=== PATIENT | female | born 1955 | race Caucasian/White ===

== ENCOUNTER 2017-10-27 17:23 | Observation (INO) | payer OTHER ==
[~2017-10-27] VITALS: Ht 147.3 cm; Wt 52.0 kg
[~2017-10-27 17:23] MED LIST: BACL20TA PO; CALTTAB PO; ERTA1P IVPB; GABA100C4 PO; KCL10C PO; MAGN400 PO; METO25 PO; OMEP20CA5 PO; PRAV40TA PO; TAB-TAB PO
[2017-10-27 17:31] VITALS: BP 156/77; PULSE 76; RESP 16; TEMP 99; O2SAT 95
[2017-10-27] MEDS ORDERED: SODIUM CHLOR 0.9% 1000 ML INJ 1,000 ML IV ONE (18:00)
[2017-10-27] MEDS ORDERED: HYDROmorphone HCL PF 2 MG/ML VIAL IV PUSH ONE ×2 (18:00→20:45)
[2017-10-27] MEDS ORDERED: ONDANSETRON HCL 4 MG/2 ML VIAL IV PUSH ONE (18:00)
--- NOTE | 2017-10-27 18:05 | PD ---
HPI Chief Complaint: Abdominal Pain Time Seen by Provider: 17:52 Travel History International Travel<30 days: No Contact w/Intl Traveler<30days: No Traveled to known affect area: No History of Present Illness HPI This 62-year-old female says she is having right upper quadrant pain since Thursday. SHe has been vomiting. She is not able to keep anything down. The pain is been intermittent. She has a history of appendectomy. She did pass a kidney stone in the 80s. She says she had a colonoscopy done fairly recently. She is a patient with the [facility]. He says there is been persistent vomiting since Thursday. She has a history of severe back trouble she has rods and screws in her back and is on gabapentin and baclofen for pain. She has been on narcotics in the past but is not on anything now PFSH Past Medical History Arthritis: Yes Asthma: Yes Autoimmune Disease: No Blood Disorders: No Anxiety: Yes Depression: Yes Heart Rhythm Problems: No Cancer: No Cardiovascular Problems: Yes (TACHYCARDIA) High Cholesterol: Yes Chemotherapy: No Chest Pain: No Congestive Heart Failure: No COPD: Yes Cerebrovascular Accident: No Diabetes: No Diminished Hearing: No Endocrine: No GERD: Yes Glaucoma: No Genitourinary: Yes (RENAL CALCULI) Headaches: Yes Hepatitis: No Hiatal Hernia: No Herniated Disk: Yes (LUMBAR 2,3,4,5) Hypertension: Yes Immune Disorder: No Kidney Stones: Yes Musculoskeletal: Yes (BACK PAIN) Neurologic: No Psychiatric: Yes Reproductive: No Respiratory: Yes Immunizations Current: No Migraines: No Myocardial Infarction: No Radiation Therapy: No Renal Failure: No Seizures: No Sickle Cell Disease: No Sleep Apnea: No Thyroid Disease: No Ulcer: No PNEUMOCCOCAL Vaccine (Year): 2 ?: Not Menopausal: Yes Ectopic : Yes (1974) Ovarian Cysts: Yes Past Surgical History Abdominal Surgery: No AICD: No Appendectomy: Yes (1966) Arteriovenous Shunt: No Cardiac Surgery: No Cholecystectomy: No Ear Surgery: No Endocrine Surgery: No Eye Surgery: No Genitourinary Surgery: No Gynecologic Surgery: Yes (hysterectomy) Hysterectomy: Yes Insulin Pump: No Joint Replacement: Yes (CRISTOBAL RODS & SCREWS L2-3, 2004) Oral Surgery: No Pacemaker: No Thoracic Surgery: No Tonsillectomy: Yes Other Surgery: Yes (TUMOR REMOVED BETWEEN EYES) Social History Alcohol Use: No Tobacco Use: No (QUIT DECEMBER 2010) Substance Use: No Allergies-Medications (Allergen,Severity, Reaction): Coded Allergies: levofloxacin (Unverified Allergy, Severe, Rash, 01/27/17) magnesium citrate (Unverified Allergy, Severe, Nausea/Vomiting, 01/27/17) penicillin G (Unverified Allergy, Severe, Anaphylaxis, 01/27/17) pneumococcal vaccine (Unverified Allergy, Severe, Anaphylaxis, 01/27/17) Reported Meds & Prescriptions Reported Meds & Active Scripts Active Reported Arthritis Pain Reliever ER 8 HR (Acetaminophen) 650 Mg Tab 650 Mg PO Q8HR PRN Pravachol (Pravastatin) 80 Mg Tab 80 Mg PO DAILY Omeprazole 20 Mg Tab 20 Mg PO DAILY Metoprolol Tartrate 25 Mg Tab 25 Mg PO BID Gabapentin 100 Mg Cap 100 Mg PO BID Baclofen 20 Mg Tab 20 Mg PO TID Review of Systems General / Constitutional: No: Fever, Chills Eyes: No: Diploplia, Blurred Vision HENT: No: Headaches, Vertigo Cardiovascular: No: Chest Pain or Discomfort, Palpitations, Irregular Rhythm Respiratory: No: Cough, Shortness of Breath Gastrointestinal: Positive: Nausea, Vomiting, Diarrhea, Abdominal Pain Genitourinary: No: Urgency, Frequency Musculoskeletal: No: Myalgias Skin: No Rash, No Itching Neurologic: No: Weakness, Dizziness Endocrine: No: Heat Intolerance Hematologic/Lymphatic: No: Easy Bruising Physical Exam Narrative GENERAL: Thin female SKIN: Focused skin assessment warm/dry. HEAD: Atraumatic. Normocephalic. EYES: Pupils equal and round. No scleral icterus. No injection or drainage. ENT: No nasal bleeding or discharge. Mucous membranes pink and moist. NECK: Trachea midline. No JVD. CARDIOVASCULAR: Regular rate and rhythm. No murmur appreciated. RESPIRATORY: No accessory muscle use. Clear to auscultation. Breath sounds equal bilaterally. GASTROINTESTINAL: Abdomen soft, non-tender, nondistended. Hepatic and splenic margins not palpable. Pain is the right upper quadrant but it is not particularly tender to palpate,there are no masses palpable MUSCULOSKELETAL: No obvious deformities. No clubbing. No cyanosis. No edema. She has multiple scars in her back NEUROLOGICAL: Awake and alert. No obvious cranial nerve deficits. Motor grossly within normal limits. Normal speech. PSYCHIATRIC: Appropriate mood and affect; insight and judgment normal. Data Data Last Documented VS Vital Signs Date Time Temp Pulse Resp B/P (MAP) Pulse Ox O2 Delivery O2 Flow Rate FiO2 10/27/17 20:20 98.4 74 16 129/73 (91) 96 Room Air Orders Orders Complete Blood Count With Diff (10/27/17 18:00) Comprehensive Metabolic Panel (10/27/17 18:00) Lipase (10/27/17 18:00) Urinalysis - C+S If Indicated (10/27/17 18:00) Chest, Pa & Lat (10/27/17 18:00) Sodium Chlor 0.9% 1000 Ml Inj (Ns 1000 M (10/27/17 18:00) Ondansetron Inj (Zofran Inj) (10/27/17 18:00) Hydromorphone Pf Inj (Dilaudid Pf Inj) (10/27/17 18:00) Ct Abd/Pel W Iv Contrast(Rout) (10/27/17 19:03) Iohexol 350 Inj (Omnipaque 350 Inj) (10/27/17 20:08) Hydromorphone Pf Inj (Dilaudid Pf Inj) (10/27/17 20:45) Metoclopramide Inj (Reglan Inj) (10/27/17 20:45) Sodium Chlorid 0.9% 500 Ml Inj (Ns 500 M (10/27/17 20:45) Diet Npo (10/28/17 Breakfast) Vital Signs (Adult) EMRE.Q4H (10/27/17 20:47) Ondansetron Inj (Zofran Inj) (10/27/17 21:00) Hydromorphone Pf Inj (Dilaudid Pf Inj) (10/27/17 21:00) Sodium Chlor 0.9% 1000 Ml Inj (Ns 1000 M (10/27/17 21:00) Place In Observation (10/27/17 ) Admit Order (Ed Use Only) (10/27/17 ) Vital Signs (Adult) Q4H (10/27/17 20:49) Activity Oob With Assistance (10/27/17 20:49) Notify Dr: Other (10/27/17 20:49) Labs Laboratory Tests Test 10/27/17 18:20 10/27/17 19:10 White Blood Count 6.2 TH/MM3 Red Blood Count 4.03 MIL/MM3 Hemoglobin 12.9 GM/DL Hematocrit 39.1 % Mean Corpuscular Volume 97.0 FL Mean Corpuscular Hemoglobin 32.1 PG Mean Corpuscular Hemoglobin Concent 33.1 % Red Cell Distribution Width 12.2 % Platelet Count 296 TH/MM3 Mean Platelet Volume 7.9 FL Neutrophils (%) (Auto) 42.8 % Lymphocytes (%) (Auto) 44.1 % Monocytes (%) (Auto) 7.7 % Eosinophils (%) (Auto) 3.8 % Basophils (%) (Auto) 1.6 % Neutrophils # (Auto) 2.7 TH/MM3 Lymphocytes # (Auto) 2.7 TH/MM3 Monocytes # (Auto) 0.5 TH/MM3 Eosinophils # (Auto) 0.2 TH/MM3 Basophils # (Auto) 0.1 TH/MM3 CBC Comment DIFF FINAL Differential Comment Blood Urea Nitrogen 18 MG/DL Creatinine 0.75 MG/DL Random Glucose 97 MG/DL Total Protein 7.4 GM/DL Albumin 3.7 GM/DL Calcium Level 9.2 MG/DL Alkaline Phosphatase 83 U/L Aspartate Amino Transf (AST/SGOT) 22 U/L Alanine Aminotransferase (ALT/SGPT) 29 U/L Total Bilirubin 0.3 MG/DL Sodium Level 141 MEQ/L Potassium Level 4.0 MEQ/L Chloride Level 112 MEQ/L Carbon Dioxide Level 22.8 MEQ/L Anion Gap 6 MEQ/L Estimat Glomerular Filtration Rate 78 ML/MIN Lipase 128 U/L Urine Color YELLOW Urine Turbidity CLEAR Urine pH 6.0 Urine Specific [place] 1.020 Urine Protein NEG mg/dL Urine Glucose (UA) NEG mg/dL Urine Ketones NEG mg/dL Urine Occult Blood SMALL Urine Nitrite NEG Urine Bilirubin NEG Urine Urobilinogen 0.2 MG/DL Urine Leukocyte Esterase NEG Urine RBC 20-24 /hpf Urine WBC 0-2 /hpf Urine Squamous Epithelial Cells 0-5 /hpf Urine Bacteria NONE /hpf Microscopic Urinalysis Comment CULT NOT INDICATED MDM Medical Decision Making Medical Screen Exam Complete: Yes Emergency Medical Condition: Yes Medical Record Reviewed: Yes Differential Diagnosis Differential includes cholecystitis, radiculopathy, chest pain Narrative Course CT scan and lab work have been ordered and disposition is pending results of these tests William Saldaña MD October 27, 2017 18:05
[2017-10-27] MEDS ORDERED: PRAV80TA PO (18:09)
[2017-10-27] MEDS ORDERED: GABA100C4 PO (18:09)
[2017-10-27] MEDS ORDERED: BACL20TA PO (18:09)
[2017-10-27] MEDS ORDERED: METO25TA3 PO (18:09)
[2017-10-27] MEDS ORDERED: OMEP20TA93 PO (18:09)
[2017-10-27] MEDS ORDERED: ARTH650T6 PO (18:10)
[2017-10-27 18:33] LABS: AUTOMATED NEUTROPHIL # 2.7 TH/MM3 (1.8-7.7); BASOPHIL # 0.1 TH/MM3 (0-0.2); BASOPHIL % 1.6 % (0.0-2.0); EOSINOPHIL # 0.2 TH/MM3 (0-0.4); EOSINOPHIL % 3.8 % (0.0-4.0); HEMATOCRIT 39.1 % (35.0-46.0); HEMOGLOBIN 12.9 GM/DL (11.6-15.3); LYMPH % 44.1 % (9.0-44.0); LYMPHOCYTE # 2.7 TH/MM3 (1.0-4.8); MEAN CORPUSCULAR HEMOGLOBIN 32.1 PG (27.0-34.0); MEAN CORPUSCULAR HGB CONC 33.1 % (32.0-36.0); MEAN PLATELET VOLUME 7.9 FL (7.0-11.0); MONO % 7.7 % (0.0-8.0); MONOCYTE # 0.5 TH/MM3 (0-0.9); NEUT % 42.8 % (16.0-70.0); PLATELET COUNT 296 TH/MM3 (150-450); RED BLOOD COUNT 4.03 MIL/MM3 (4.00-5.30); RED CELL DISTRIBUTION WIDTH 12.2 % (11.6-17.2); WHITE BLOOD COUNT 6.2 TH/MM3 (4.0-11.0)
[2017-10-27 18:42] LABS: CHLORIDE 112 MEQ/L (98-107); SODIUM (NA) 141 MEQ/L (136-145)
[2017-10-27 18:43] VITALS: BP 150/80; PULSE 58; RESP 16; O2SAT 95
[2017-10-27 18:45] LABS: ALBUMIN 3.7 GM/DL (3.4-5.0); CALCIUM 9.2 MG/DL (8.5-10.1)
[2017-10-27 18:46] LABS: BICARBONATE 22.8 MEQ/L (21.0-32.0); BLOOD UREA NITROGEN 18 MG/DL (7-18); GLUCOSE,RANDOM 97 MG/DL (74-106)
[2017-10-27 18:48] LABS: ALT (GPT) 29 U/L (10-53)
[2017-10-27 18:49] LABS: AST (GOT) 22 U/L (15-37); CREATININE 0.75 MG/DL (0.50-1.00); GLOMERULAR FILTRATION RATE 78 ML/MIN (>89)
[2017-10-27 18:50] LABS: TOTAL BILIRUBIN ADULT 0.3 MG/DL (0.2-1.0); TOTAL PROTEIN 7.4 GM/DL (6.4-8.2)
[2017-10-27 18:51] LABS: ALKALINE PHOSPHATASE 83 U/L (45-117)
[2017-10-27 19:19] LABS: BILIRUBIN, URINE NEG (NEG); BLOOD, URINE SMALL (NEG); GLUCOSE,URINE NEG (NEG); KETONE, URINE NEG (NEG); NITRITE,URINE NEG (NEG); URINE COLOR YELLOW (YELLW/STRAW); URINE LEUKOCYTE ESTERASE NEG (NEG)
[2017-10-27 19:24] LABS: WBC, URINE 0-2 /hpf (0-5)
[2017-10-27 19:25] LABS: SQUAMOUS EPITHELIAL CELL URINE 0-5 /hpf (0-5)
--- NOTE | 2017-10-27 19:31 | RADRPT ---
EXAM DATE/TIME: 10/27/2017 18:48 [facility] COMPARISON: No previous studies available for comparison. INDICATIONS : Nausea and vomiting with right flank pain for 3 days. MEDICAL HISTORY : Hypertension. Hypercholesterolemia. Chronic obstructive pulmonary disease. Tachycardia. Emphysema . GERD. Arthritis. SURGICAL HISTORY : Appendectomy. Hysterectomy. Lumbar fusion. Dhillon rods. ENCOUNTER: Initial ACUITY: 3 days PAIN SCORE: 5/10 LOCATION: Bilateral chest FINDINGS: PA and lateral views of the chest demonstrate the lungs to be symmetrically aerated without evidence of mass, infiltrate or effusion. The cardiomediastinal contours are unremarkable. Degenerative torres es in the spine.. CONCLUSION: No acute disease Randal Baer MD on October 27, 2017 at 19:27 Board Certified Radiologist. This report was verified electronically.
[2017-10-27] MEDS ORDERED: IOHEXOL 350 MG/ML 10 ML VIAL (for RAD DIAG) IVCONTRAST ONE (20:08)
[2017-10-27 20:20] VITALS: BP 129/73; PULSE 74; RESP 16; TEMP 98.4; O2SAT 96
--- NOTE | 2017-10-27 20:28 | RADRPT ---
EXAM DATE/TIME: 10/27/2017 19:21 [facility] COMPARISON: No previous studies available for comparison. INDICATIONS : Right upper quadrant pain. Nausea, vomiting and diarrhea. IV CONTRAST: 75 cc Omnipaque 350 (iohexol) IV ORAL CONTRAST: No oral contrast ingested. RADIATION DOSE: 5.72 CTDIvol (mGy) MEDICAL HISTORY : Gastroesophageal reflux disease. SURGICAL HISTORY : Appendectomy. Hysterectomy.Fusion, lumbar. ENCOUNTER: Initial ACUITY: 3 days PAIN SCALE: 8/10 LOCATION: Right upper quadrant TECHNIQUE: Volumetric scanning of the abdomen and pelvis was performed. Using automated exposure control and ad justment of the mA and/or kV according to patient size, radiation dose was kept as low as reasonably achievable to obtain optimal diagnostic quality images. DICOM format image data is available electro nically for review and comparison. FINDINGS: LOWER LUNGS: The visualized lower lungs are clear. LIVER: Homogeneous density without lesion. Slight biliary ductal prominence with common duct diameter of 8 o r 9 mm. No calcified gallstones. SPLEEN: Normal size without lesion. PANCREAS: Within normal limits. KIDNEYS: Small cysts in the kidneys. No evidence of suspicious mass, stone or hydronephrosis. ADRENAL GLANDS: Within normal limits. VASCULAR: There is no aortic aneurysm. BOWEL/MESENTERY: The stomach, small bowel, and colon demonstrate no acute abnormality. There is no free intraperitone al air or fluid. ABDOMINAL WALL: Within normal limits. RETROPERITONEUM: There is no lymphadenopathy. BLADDER: No wall thickening or mass. REPRODUCTIVE: Uterus is surgically absent. No evidence of pelvic mass or free fluid INGUINAL: There is no lymphadenopathy or hernia. MUSCULOSKELETAL: Previous extensive lumbar hardware fusion. CONCLUSION: Mild biliary ductal prominence. Randal Baer MD on October 27, 2017 at 20:18 Board Certified Radiologist. This report was verified electronically.
--- NOTE | 2017-10-27 20:36 | PD ---
Physical Exam Date Seen by Provider: October 27, 2017 Time Seen by Provider: 20:00 Narrative GENERAL: Well-developed well-nourished female no acute distress or respiratory distress SKIN: Warm and dry. CARDIOVASCULAR: Regular rate and rhythm without murmurs, gallops, or rubs. RESPIRATORY: Breath sounds equal bilaterally. No accessory muscle use. GASTROINTESTINAL: Abdomen soft, right upper quadrant tenderness to palpation, [place] sign on exam, nondistended. BACK: Nontender. No CVA tenderness. Data Data Last Documented VS Vital Signs Date Time Temp Pulse Resp B/P (MAP) Pulse Ox O2 Delivery O2 Flow Rate FiO2 10/27/17 20:20 98.4 74 16 129/73 (91) 96 Room Air Orders Orders Complete Blood Count With Diff (10/27/17 18:00) Comprehensive Metabolic Panel (10/27/17 18:00) Lipase (10/27/17 18:00) Urinalysis - C+S If Indicated (10/27/17 18:00) Chest, Pa & Lat (10/27/17 18:00) Sodium Chlor 0.9% 1000 Ml Inj (Ns 1000 M (10/27/17 18:00) Ondansetron Inj (Zofran Inj) (10/27/17 18:00) Hydromorphone Pf Inj (Dilaudid Pf Inj) (10/27/17 18:00) Ct Abd/Pel W Iv Contrast(Rout) (10/27/17 19:03) Iohexol 350 Inj (Omnipaque 350 Inj) (10/27/17 20:08) Hydromorphone Pf Inj (Dilaudid Pf Inj) (10/27/17 20:45) Metoclopramide Inj (Reglan Inj) (10/27/17 20:45) Sodium Chlorid 0.9% 500 Ml Inj (Ns 500 M (10/27/17 20:45) Diet Npo (10/28/17 Breakfast) Vital Signs (Adult) EMRE.Q4H (10/27/17 20:47) Ondansetron Inj (Zofran Inj) (10/27/17 21:00) Hydromorphone Pf Inj (Dilaudid Pf Inj) (10/27/17 21:00) Sodium Chlor 0.9% 1000 Ml Inj (Ns 1000 M (10/27/17 21:00) Place In Observation (10/27/17 ) Admit Order (Ed Use Only) (10/27/17 ) Vital Signs (Adult) Q4H (10/27/17 20:49) Activity Oob With Assistance (10/27/17 20:49) Notify Dr: Other (10/27/17 20:49) Labs Laboratory Tests Test 10/27/17 18:20 10/27/17 19:10 White Blood Count 6.2 TH/MM3 Red Blood Count 4.03 MIL/MM3 Hemoglobin 12.9 GM/DL Hematocrit 39.1 % Mean Corpuscular Volume 97.0 FL Mean Corpuscular Hemoglobin 32.1 PG Mean Corpuscular Hemoglobin Concent 33.1 % Red Cell Distribution Width 12.2 % Platelet Count 296 TH/MM3 Mean Platelet Volume 7.9 FL Neutrophils (%) (Auto) 42.8 % Lymphocytes (%) (Auto) 44.1 % Monocytes (%) (Auto) 7.7 % Eosinophils (%) (Auto) 3.8 % Basophils (%) (Auto) 1.6 % Neutrophils # (Auto) 2.7 TH/MM3 Lymphocytes # (Auto) 2.7 TH/MM3 Monocytes # (Auto) 0.5 TH/MM3 Eosinophils # (Auto) 0.2 TH/MM3 Basophils # (Auto) 0.1 TH/MM3 CBC Comment DIFF FINAL Differential Comment Blood Urea Nitrogen 18 MG/DL Creatinine 0.75 MG/DL Random Glucose 97 MG/DL Total Protein 7.4 GM/DL Albumin 3.7 GM/DL Calcium Level 9.2 MG/DL Alkaline Phosphatase 83 U/L Aspartate Amino Transf (AST/SGOT) 22 U/L Alanine Aminotransferase (ALT/SGPT) 29 U/L Total Bilirubin 0.3 MG/DL Sodium Level 141 MEQ/L Potassium Level 4.0 MEQ/L Chloride Level 112 MEQ/L Carbon Dioxide Level 22.8 MEQ/L Anion Gap 6 MEQ/L Estimat Glomerular Filtration Rate 78 ML/MIN Lipase 128 U/L Urine Color YELLOW Urine Turbidity CLEAR Urine pH 6.0 Urine Specific [place] 1.020 Urine Protein NEG mg/dL Urine Glucose (UA) NEG mg/dL Urine Ketones NEG mg/dL Urine Occult Blood SMALL Urine Nitrite NEG Urine Bilirubin NEG Urine Urobilinogen 0.2 MG/DL Urine Leukocyte Esterase NEG Urine RBC 20-24 /hpf Urine WBC 0-2 /hpf Urine Squamous Epithelial Cells 0-5 /hpf Urine Bacteria NONE /hpf Microscopic Urinalysis Comment CULT NOT INDICATED MDM Medical Record Reviewed: Yes Supervised Visit with KEVIN: No Interpretation(s) ua: blood; no cx indicated Last Impressions Abdomen/Pelvis CT 10/27/17 1903 Signed Impressions: Service Date/Time: Friday, October 27, 2017 19:21 - CONCLUSION: Mild biliary ductal prominence. Randal Baer MD Chest X-Ray 10/27/17 1800 Signed Impressions: Service Date/Time: Friday, October 27, 2017 18:48 - CONCLUSION: No acute disease Randal Baer MD CBC & BMP Diagram 10/27/17 18:20 Total Protein 7.4, Albumin 3.7, Calcium Level 9.2, Alkaline Phosphatase 83, Aspartate Amino Transf (AST/SGOT) 22, Alanine Aminotransferase (ALT/SGPT) 29, Total Bilirubin 0.3 Vital Signs Date Time Temp Pulse Resp B/P (MAP) Pulse Ox O2 Delivery O2 Flow Rate FiO2 10/27/17 20:20 98.4 74 16 129/73 (91) 96 Room Air 10/27/17 18:43 58 16 150/80 (103) 95 Room Air 10/27/17 17:31 99.0 76 16 156/77 (103) 95 Differential Diagnosis Accepted in transfer of care from Dr. Callejas; please refer to his dictation Narrative Course Accepted in transfer of care from Dr. Callejas; follow-up of pending labs imaging study and disposition At 8:35 PM lab values are found to be in normal range; CT abdomen pelvis identifies mild biliary duct prominence. Patient with spouse at bedside informed of lab results imaging results and reexamine continues to have reproducible right upper quadrant abdominal pain to palpation without guarding or rebound also continues to have localized right flank pain; current pain 6/10 intensity with persistent nausea patient given additional dose of Dilaudid 0.5 mg IV Reglan 10 mg IV and additional bolus of normal saline 500 cc; patient's case discussed with on-call medicine for observation admission for intractable pain right upper quadrant consistent with biliary colic possible early cholecystitis. Physician Communication Physician Communication Discussed with Dr Loya --obs Diagnosis Primary Impression: Intractable abdominal pain Admitting Information Admitting Physician Requests: Observation Carol Rendon MD October 27, 2017 20:36
[2017-10-27] MEDS ORDERED: METOCLOPRAMIDE HCL 10 MG/2 ML VIAL IV PUSH ONE (20:45)
[2017-10-27] MEDS ORDERED: SODIUM CHLORID 0.9% 500 ML INJ 500 ML IV ONE (20:45)
[2017-10-27] MEDS: SODIUM CHLOR 0.9% 1000 ML INJ 1,000 ML IV SCH (21:57)
[2017-10-27 22:00] VITALS: BP 128/75; PULSE 63; RESP 20; TEMP 98.6; O2SAT 96
[2017-10-28 04:00] VITALS: BP 150/84; PULSE 75; RESP 20; TEMP 97.3; O2SAT 100
[2017-10-28] MEDS: ONDANSETRON HCL 4 MG/2 ML VIAL IV PUSH PRN ×3 (04:33→22:14)
[2017-10-28] MEDS: HYDROmorphone HCL PF 0.5 MG/0.5 ML SYRINGE IV PUSH PRN ×4 (04:34→19:42)
[2017-10-28] MEDS: SODIUM CHLOR 0.9% 1000 ML INJ 1,000 ML IV SCH ×2 (07:56→17:51)
[2017-10-28 08:00] VITALS: BP 146/86; PULSE 61; RESP 18; TEMP 97.6; O2SAT 100
[2017-10-28 12:00] VITALS: BP 144/89; PULSE 70; RESP 18; TEMP 97.6; O2SAT 100
--- NOTE | 2017-10-28 12:09 | HHI.HP ---
[facility] Service [place] [facility] Primary Care Physician Non-Staff Admission Diagnosis RUQ abdominal pain Diagnoses: Chief Complaint: Abdominal pain Nausea and vomiting Diarrhea Travel History International Travel<30 Days: No Contact w/Intl Traveler <30 Da: No Traveled to Known Affected Are: No History of Present Illness This is a pleasant 62-year-old female patient with a known medical history of tachycardia, hyperlipidemia, GERD and COPD who presented to the ED with complaints of worsening right upper quadrant pain, nausea and vomiting and diarrhea. Patient states that over the past year she has been following with the MA, she states that she has been having indigestion that has been progressively getting worse and more frequent bouts. Patient states that since Thursday this time patient noticed pain in her right upper quadrant right below her breast, lasted a couple hours, took some Tums and noticed mild relief. Shortly after the pain reoccurred, characterized as burning and sharp in nature , constant in nature and has been pretty constant since Thursday. Denies any worsening factors. Does admit to subjective low-grade fever and chills as well as shortness of breath with the pain. Patient does state that she has not been able to tolerate anything by mouth since Thursday and has had nausea, vomiting and diarrhea. Patient does have a history of appendectomy. Last colonoscopy was 2 years ago. Denies any EGD in the past. Denies any changes in her medicines. Does admit to a history of chronic back pain on baclofen and gabapentin. Denies any significant weight loss in the past. Denies any bloody or black stools. Denies any dysuria or chest pain. Vital signs upon presentation are normal, afebrile. No leukocytosis. BMP essentially unremarkable. UA negative. Review of Systems Constitutional: COMPLAINS OF: Fatigue, Fever, Chills, DENIES: Diaphoretic episodes Eyes: DENIES: Blurred vision, Diplopia Respiratory: DENIES: Cough, Sputum production, Shortness of breath Cardiovascular: DENIES: Chest pain, Palpitations Gastrointestinal: COMPLAINS OF: Abdominal pain, Diarrhea, Nausea, Vomiting, DENIES: Black stools, Bloody stools, Constipation Musculoskeletal: DENIES: Joint pain Hematologic/lymphatic: DENIES: Bruising Immunologic/allergic: DENIES: Eczema Neurologic: DENIES: Abnormal gait Psychiatric: DENIES: Anxiety Except as stated in HPI: all other systems reviewed are Neg Past Family Social History Past Medical History Anxiety depression Arthritis Tachycardia Hyperlipidemia COPD History of tobacco abuse GERD History of renal calculi Chronic back pain with herniated lumbar 2, 3, 4, 5 discs History of jaw necrosis requiring multiple surgeries Past Surgical History Appendectomy Total hysterectomy Back surgery with placement of Dhillon rods and screws in L2-3 Tonsillectomy 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 Reported Medications Active Reported Arthritis Pain Reliever ER 8 HR (Acetaminophen) 650 Mg Tab 650 Mg PO Q8HR PRN Pravachol (Pravastatin) 80 Mg Tab 80 Mg PO DAILY Omeprazole 20 Mg Tab 20 Mg PO DAILY Metoprolol Tartrate 25 Mg Tab 25 Mg PO BID Gabapentin 100 Mg Cap 100 Mg PO BID Baclofen 20 Mg Tab 20 Mg PO TID Allergies: Coded Allergies: levofloxacin (Unverified Allergy, Severe, Rash, 01/27/17) magnesium citrate (Unverified Allergy, Severe, Nausea/Vomiting, 01/27/17) penicillin G (Unverified Allergy, Severe, Anaphylaxis, 01/27/17) pneumococcal vaccine (Unverified Allergy, Severe, Anaphylaxis, 01/27/17) Active Ordered Medications Current Medications Medications (Trade) Dose Ordered Sig/Juancho Route Start Time Stop Time Status Last Admin (Zofran Inj) 4 mg Q8HR PRN IV PUSH 10/27/17 21:00 10/28/17 04:33 (Dilaudid Pf Inj) 0.5 mg Q4H PRN IV PUSH 10/27/17 21:00 10/28/17 09:39 Sodium Chloride 1,000 ml @ 100 mls/hr Q10H IV 10/27/17 21:00 10/28/17 07:56 Family History Maternal medical history significant for breast cancer. Patient of Parkinson's disease. Social History Patient states that she quit smoking 1 month ago. Does admit to a 50 year smoking history, with maximum of 3 packs per day. Denies any illicit drug use. Denies any alcohol use. Physical Exam Vital Signs Vital Signs Date Time Temp Pulse Resp B/P (MAP) Pulse Ox O2 Delivery O2 Flow Rate FiO2 10/28/17 08:00 97.6 61 18 146/86 (106) 100 10/28/17 04:00 97.3 75 20 150/84 (106) 100 10/27/17 22:00 98.6 63 20 128/75 (92) 96 10/27/17 21:49 10/27/17 20:20 98.4 74 16 129/73 (91) 96 Room Air 10/27/17 18:43 58 16 150/80 (103) 95 Room Air 10/27/17 17:31 99.0 76 16 156/77 (103) 95 Physical Exam GENERAL: Well-developed, well-nourished patient in NAD. SKIN: Warm and dry. No rash. HEAD: Normocephalic. Atraumatic. EYES: Pupils equal and round. No scleral icterus. No injection or drainage. ENT: No nasal bleeding or discharge. Mucous membranes pink and moist. NECK: Supple. Trachea midline. CARDIOVASCULAR: Regular rate and rhythm. S1, S2 noted. No murmur appreciated. RESPIRATORY: No accessory muscle use. Clear to auscultation. Breath sounds equal bilaterally. GASTROINTESTINAL: Abdomen soft, nondistended. Painful to palpation of right upper quadrant. Normoactive bowel sounds x4. MUSCULOSKELETAL: No obvious deformities. Extremities without clubbing, cyanosis , or edema. NEUROLOGICAL: Awake and alert. No obvious cranial nerve deficits. Motor grossly within normal limits. 5/5 muscle strength in bilateral upper and lower extremities. Normal speech. PSYCHIATRIC: Appropriate mood and affect; insight and judgment normal. Laboratory Laboratory Tests Test 10/27/17 18:20 10/27/17 19:10 White Blood Count 6.2 Red Blood Count 4.03 Hemoglobin 12.9 Hematocrit 39.1 Mean Corpuscular Volume 97.0 Mean Corpuscular Hemoglobin 32.1 Mean Corpuscular Hemoglobin Concent 33.1 Red Cell Distribution Width 12.2 Platelet Count 296 Mean Platelet Volume 7.9 Neutrophils (%) (Auto) 42.8 Lymphocytes (%) (Auto) 44.1 Monocytes (%) (Auto) 7.7 Eosinophils (%) (Auto) 3.8 Basophils (%) (Auto) 1.6 Neutrophils # (Auto) 2.7 Lymphocytes # (Auto) 2.7 Monocytes # (Auto) 0.5 Eosinophils # (Auto) 0.2 Basophils # (Auto) 0.1 CBC Comment DIFF FINAL Differential Comment Blood Urea Nitrogen 18 Creatinine 0.75 Random Glucose 97 Total Protein 7.4 Albumin 3.7 Calcium Level 9.2 Alkaline Phosphatase 83 Aspartate Amino Transf (AST/SGOT) 22 Alanine Aminotransferase (ALT/SGPT) 29 Total Bilirubin 0.3 Sodium Level 141 Potassium Level 4.0 Chloride Level 112 Carbon Dioxide Level 22.8 Anion Gap 6 Estimat Glomerular Filtration Rate 78 Lipase 128 Urine Color YELLOW Urine Turbidity CLEAR Urine pH 6.0 Urine Specific Bradford 1.020 Urine Protein NEG Urine Glucose (UA) NEG Urine Ketones NEG Urine Occult Blood SMALL Urine Nitrite NEG Urine Bilirubin NEG Urine Urobilinogen 0.2 Urine Leukocyte Esterase NEG Urine RBC 20-24 Urine WBC 0-2 Urine Squamous Epithelial Cells 0-5 Urine Bacteria NONE Microscopic Urinalysis Comment CULT NOT INDICATED Result Diagram: 10/27/17 1820 10/27/17 1820 Imaging Last Impressions Abdomen/Pelvis CT 10/27/17 1903 Signed Impressions: Service Date/Time: Friday, October 27, 2017 19:21 - CONCLUSION: Mild biliary ductal prominence. Randal Baer MD Chest X-Ray 10/27/17 1800 Signed Impressions: Service Date/Time: Friday, October 27, 2017 18:48 - CONCLUSION: No acute disease Randal Baer MD Septic Shock Reassessment Septic shock perfusion: reassessment completed Caprini VTE Risk Assessment Caprini VTE Risk Assessment: Mod/High Risk (score >= 2) Caprini Risk Assessment Model Point Value = 1 Point Value = 2 Point Value = 3 Point Value = 5 Age 41-60 Minor surgery BMI > 25 kg/m2 Swollen legs Varicose veins or History of unexplained or recurrent spontaneous Oral contraceptives or hormone replacement Sepsis (< 1 month) Serious lung disease, including pneumonia (< 1 month) Abnormal pulmonary function Acute myocardial infarction Congestive heart failure (< 1 month) History of inflammatory bowel disease Medical patient at bed rest Age 61-74 Arthroscopic surgery Major open surgery (> 45 min) Laparoscopic surgery (> 45 min) Malignancy Confined to bed (> 72 hours) Immobilizing plaster cast Central venous access Age >= 75 History of VTE Family history of VTE Factor V Leiden Prothrombin [id number] Lupus anticoagulant Anticardiolipin antibodies Elevated serum homocysteine Heparin-induced thrombocytopenia Other congenital or acquired thrombophilia Stroke (< 1 month) Elective arthroplasty Hip, pelvis, or leg fracture Acute spinal cord injury (< 1 month) Prophylaxis Regimen Total Risk Factor Score Risk Level Prophylaxis Regimen 0-1 Low Early ambulation 2 Moderate Order ONE of the following: *Sequential Compression Device (SCD) *Heparin 5000 units SQ BID 3-4 Higher Order ONE of the following medications: *Heparin 5000 units SQ TID *Enoxaparin/Lovenox 40 mg SQ daily (WT < 150 kg, CrCl > 30 mL/min) *Enoxaparin/Lovenox 30 mg SQ daily (WT < 150 kg, CrCl > 10-29 mL/min) *Enoxaparin/Lovenox 30 mg SQ BID (WT < 150 kg, CrCl > 30 mL/min) AND/OR *Sequential Compression Device (SCD) 5 or more Highest Order ONE of the following medications: *Heparin 5000 units SQ TID (Preferred with Epidurals) *Enoxaparin/Lovenox 40 mg SQ daily (WT < 150 kg, CrCl > 30 mL/min) *Enoxaparin/Lovenox 30 mg SQ daily (WT < 150 kg, CrCl > 10-29 mL/min) *Enoxaparin/Lovenox 30 mg SQ BID (WT < 150 kg, CrCl > 30 mL/min) AND *Sequential Compression Device (SCD) Assessment and Plan Problem List: (1) Intractable abdominal pain ICD Code: R10.9 - Unspecified abdominal pain Status: Acute Assessment and Plan This is a pleasant 62-year-old female patient with a known medical history of tachycardia, hyperlipidemia, GERD and COPD who presented to the ED with complaints of worsening right upper quadrant pain, nausea and vomiting and diarrhea. Intractable abdominal pain Nausea and vomiting Diarrhea - Abdominal/pelvis CT reviewed showing mild biliary ductal prominence. Will obtain liver ultrasound. Continue to follow. - Zofran IV available for nausea. - Control pain, IV Dilaudid as needed per pain scale. - Ensure hydration - Continue IV fluids. Patient was given 1/2 L in the ED. Continue to monitor. - CBC and BMP reviewed, essentially unremarkable. - Chest x-ray reviewed, essentially unremarkable no acute disease. - Vital signs are stable. - Supportive care Hyperlipidemia, chronic: Continue home statin. History of tachycardia: Continue home metoprolol. Monitor heart rate. Monitor blood pressure trends. Chronic back pain: Continue home gabapentin and baclofen. DVT prophylaxis: SCDs. Samantha Ruvalcaba October 28, 2017 12:09
--- NOTE | 2017-10-28 12:17 | RADRPT ---
EXAM DATE/TIME: 10/28/2017 11:06 [place] COMPARISON: No previous studies available for comparison. INDICATIONS : Nausea/vomiting. MEDICAL HISTORY : Hypercholesterolemia. Emphysema. Renal calculi. Tachycardia. HTN. COPD. Asthma. Dyspnea. GERD. Ovaria n cysts. Ectopic . Arthritis. Herniated disc. Measles. Depression. Anxiety. SURGICAL HISTORY : Tonsillectomy. Appendectomy. Hysterectomy. L4-5 fusion. Left hand surgery. Dhillon rods and screws L2-3. Blood transfusions. Tumor removal between eyes. ENCOUNTER: Initial ACUITY: 4-6 days PAIN SCORE: 4/10 LOCATION: Bilateral upper quadrant MEASUREMENTS: LIVER: 15.4 cm length COMMON DUCT: 7 mm RIGHT KIDNEY: 10.5 x 5.2 x 3.9 cm SPLEEN: 7.3 cm length FINDINGS: LIVER: Normal echotexture without focal lesion or ductal dilatation. COMMON DUCT: No intraluminal mass or stone visualized. GALLBLADDER: Contains no stones, demonstrates no wall thickening or pericholecystic fluid. PANCREAS: The visualized portions are within normal limits. RIGHT KIDNEY: No hydronephrosis, stone or mass. SPLEEN: No focal lesion. CONCLUSION: No acute disease. Jun Olivo MD on October 28, 2017 at 12:14 Board Certified Radiologist. This report was verified electronically.
[2017-10-28] MEDS: BACLOFEN 20 MG TAB PO SCH ×2 (12:38→18:12)
[2017-10-28 16:00] VITALS: BP 140/70; PULSE 75; RESP 18; TEMP 98.3; O2SAT 100
[2017-10-28] MEDS: GABAPENTIN 100 MG CAP PO SCH (19:39)
[2017-10-28] MEDS: METOPROLOL TARTRATE 25 MG TAB PO SCH (19:39)
[2017-10-28 20:00] VITALS: BP 177/84; PULSE 77; RESP 20; TEMP 97.8; O2SAT 98
[2017-10-29] VITALS: BP 170/79; PULSE 63; RESP 20; TEMP 98.2; O2SAT 98
[2017-10-29] MEDS: HYDROmorphone HCL PF 0.5 MG/0.5 ML SYRINGE IV PUSH PRN ×2 (00:07→06:52)
[2017-10-29] MEDS: SODIUM CHLOR 0.9% 1000 ML INJ 1,000 ML IV SCH (03:57)
[2017-10-29] MEDS: ONDANSETRON HCL 4 MG/2 ML VIAL IV PUSH PRN (06:49)
[2017-10-29 08:27] VITALS: BP 160/82; PULSE 89; RESP 15; TEMP 98.5; O2SAT 98
[2017-10-29] MEDS: GABAPENTIN 100 MG CAP PO SCH (08:28)
[2017-10-29] MEDS: METOPROLOL TARTRATE 25 MG TAB PO SCH (08:28)
[2017-10-29] MEDS: BACLOFEN 20 MG TAB PO SCH (08:28)
--- NOTE | 2017-10-29 08:40 | HHI.PR ---
Subjective Remarks Follow-up intractable abdominal pain. Patient seen and examined, lying in bed with minimal right upper quadrant pain. All studies and imaging negative at this time. Patient has drank clear liquids and tolerated well. Will advance diet as tolerated. Pain control with p.o. medications now. Will discontinue IV Dilaudid at this time. Patient is agreeable to the plan. Possible discharge later if improvement seen and able to tolerate p.o. intake. Objective Vitals Vital Signs Date Time Temp Pulse Resp B/P (MAP) Pulse Ox O2 Delivery O2 Flow Rate FiO2 10/29/17 08:27 98.5 89 15 160/82 (108) 98 10/29/17 07:22 18 10/29/17 00:00 98.2 63 20 170/79 (109) 98 10/28/17 20:00 97.8 77 20 177/84 (115) 98 10/28/17 16:00 98.3 75 18 140/70 (93) 100 10/28/17 12:00 97.6 70 18 144/89 (107) 100 I/O 10/28/17 10/28/17 10/28/17 10/29/17 10/29/17 10/29/17 07:00 15:00 23:00 07:00 15:00 23:00 Intake Total 0 ml 1000 ml 978 ml 1480 ml Balance 0 ml 1000 ml 978 ml 1480 ml Intake Oral 0 ml 0 ml 480 ml IV Total 1000 ml 978 ml 1000 ml # Voids 3 6 2 # Bowel Movements 0 2 Result Diagram: 10/27/17 1820 10/27/17 1820 Imaging Last Impressions Liver Ultrasound 10/28/17 0000 Signed Impressions: Service Date/Time: Saturday, October 28, 2017 11:06 - CONCLUSION: No acute disease. Jun Olivo MD Abdomen/Pelvis CT 10/27/17 1903 Signed Impressions: Service Date/Time: Friday, October 27, 2017 19:21 - CONCLUSION: Mild biliary ductal prominence. Randal Baer MD Chest X-Ray 10/27/17 1800 Signed Impressions: Service Date/Time: Friday, October 27, 2017 18:48 - CONCLUSION: No acute disease Randal Baer MD Objective Remarks GENERAL: Well-developed, well-nourished patient in NAD. SKIN: Warm and dry. No rash. HEAD: Normocephalic. Atraumatic. EYES: Pupils equal and round. No scleral icterus. No injection or drainage. ENT: No nasal bleeding or discharge. Mucous membranes pink and moist. NECK: Supple. Trachea midline. CARDIOVASCULAR: Regular rate and rhythm. S1, S2 noted. No murmur appreciated. RESPIRATORY: No accessory muscle use. Clear to auscultation. Breath sounds equal bilaterally. GASTROINTESTINAL: Abdomen soft, nondistended. Mild right upper quadrant pain to palpation. Normoactive bowel sounds x4. MUSCULOSKELETAL: No obvious deformities. Extremities without clubbing, cyanosis , or edema. NEUROLOGICAL: Awake and alert. No obvious cranial nerve deficits. Motor grossly within normal limits. 5/5 muscle strength in bilateral upper and lower extremities. Normal speech. PSYCHIATRIC: Appropriate mood and affect; insight and judgment normal. A/P Problem List: (1) Intractable abdominal pain ICD Code: R10.9 - Unspecified abdominal pain Status: Acute Assessment and Plan This is a pleasant 62-year-old female patient with a known medical history of tachycardia, hyperlipidemia, GERD and COPD who presented to the ED with complaints of worsening right upper quadrant pain, nausea and vomiting and diarrhea. Intractable abdominal pain Nausea and vomiting. Improved Diarrhea. Improved - Abdominal/pelvis CT reviewed showing mild biliary ductal prominence. For ultrasound unremarkable. - Zofran IV available for nausea. - Control pain, patient has been taking IV Dilaudid. Will wean and discontinue for now. Nubieber as needed. - Ensure hydration. Will DC IV fluids. Patient is tolerating clear liquids. Advance diet as tolerated. - CBC and BMP reviewed, essentially unremarkable. - Chest x-ray reviewed, essentially unremarkable no acute disease. - Vital signs are stable. - Supportive care Hyperlipidemia, chronic: Continue home statin. History of tachycardia: Continue home metoprolol. Monitor heart rate. Monitor blood pressure trends. Chronic back pain: Continue home gabapentin and baclofen. DVT prophylaxis: SCDs. Discharge Planning Possible discharge today pending clinical improvement. Samantha Ruvalcaba October 29, 2017 08:40
[2017-10-29] MEDS ORDERED: ACETAMINOPHEN/HYDROcodone 325 MG/5 MG TAB PO PRN (08:45)
[2017-10-29] MEDS ORDERED: PANTOPRAZOLE SOD 20 MG DELAYED RELEASE TAB PO SCH (09:00)
[2017-10-29] MEDS ORDERED: PRAVASTATIN SOD 80 MG TAB PO SCH (09:00)
--- NOTE | 2017-10-29 10:12 | HHI.DCPOC ---
Discharge Care Plan Diagnosis: (1) Intractable abdominal pain Goals to Promote Your Health * To prevent worsening of your condition and complications * To maintain your health at the optimal level Directions to Meet Your Goals Take your medications as prescribed Follow your dietary instruction Follow activity as directed Keep your appointments as scheduled Take your immunizations and boosters as scheduled If your symptoms worsen call your PCP, if no PCP go to Urgent Care Center or Emergency Room Smoking is Dangerous to Your Health. Avoid second hand smoke Call the 24-hour hour crisis hotline for domestic abuse at Samantha Ruvalcaba October 29, 2017 10:12
[2017-10-29] MEDS ORDERED: HYDR-3516 PO (10:13)
[2017-10-29 12:12] VITALS: RESP 18
== END 2017-10-29 12:48 | disposition home or self-care (01) ==
LOC: PHED 17:23 → PHEDA 20:50 → PH3A 21:52
PROVIDERS: ADMIT Hospitalist; ATTEND Hospitalist
DX: R10.11 Right upper quadrant pain (principal); R11.2 Nausea with vomiting, unspecified; K21.9 Gastro-esophageal reflux disease without esophagitis; E78.5 Hyperlipidemia, unspecified; R00.0 Tachycardia, unspecified; R19.7 Diarrhea, unspecified; J44.9 Chronic obstructive pulmonary disease, unspecified; G89.29 Other chronic pain; I10 Essential (primary) hypertension; Z87.442 Personal history of urinary calculi; F41.8 Other specified anxiety disorders; Z98.1 Arthrodesis status
CPT/HCPCS: 71046; 74177; 76705; 80053; 81001; 83690; 85025; 96361; 96374; 96375; 96376; 99285; G0378; J1170; J2405; J2765; J7030; J7040; Q9967